=== PATIENT | male | born 1975 | race Caucasian/White ===

== ENCOUNTER 2021-01-06 10:46 | Emergency (ER) | payer BC ==
[2021-01-06 13:01] LABS: HEMOGLOBIN 15.7 gm/dl (14.0-17.5); RED BLOOD COUNT 5.17 M/UL (4.20-5.50); WHITE BLOOD COUNT 8.1 K/UL (4.5-11.0)
[2021-01-06 13:55] LABS: BUN/CREATININE RATIO 12 (0-10)
[2021-01-06] MEDS ORDERED: BUSPIRONE HCL5 MG PO (15:10)
== END 2021-01-06 16:03 | disposition home or self-care (01) ==
LOC: ER1 10:46
PROVIDERS: Physician Assistant
DX: R53.83 Other fatigue (principal); R20.2 Paresthesia of skin
CPT/HCPCS: 70450; 71045; 80053; 82550; 82553; 83735; 83874; 84439; 84443; 84484; 85025; 86403; 93005; 99284